=== PATIENT | male | born 1970 | race Caucasian/White ===

== ENCOUNTER 2019-05-20 14:29 | Inpatient (IN) | payer OTHER ==
[~2019-05-20] VITALS: Ht 185.4 cm; Wt 100.7 kg
[2019-05-20 14:35] VITALS: BP 128/79
--- NOTE | 2019-05-20 14:48 | NUR ---
Patient ambulated to bed 6. RN evaluating patient at bedside.
--- NOTE | 2019-05-20 14:48 | NUR ---
Pt placed in a patient gown. All clothing removed and placed in belongings bag. Clothing taken away from patient. Security called to collect items. Pt placed in bed, in position of comfort. Pt made aware belongings would be taken with security. Pt verbalized understanding.
[2019-05-20] MEDS ORDERED: ICOS1SGL PO (14:57)
[2019-05-20] MEDS ORDERED: OMEP20EC11 PO (14:57)
[2019-05-20] MEDS ORDERED: ESCI10TA PO (14:57)
[2019-05-20] MEDS ORDERED: ENAL5TAB48 PO (14:57)
[2019-05-20] MEDS ORDERED: CARV3.12 PO (14:57)
--- NOTE | 2019-05-20 14:58 | NUR ---
Security called to collect patient's belongings. Pt noted with large knife in back pack. All belongings given to director security risk management Fredis.
--- NOTE | 2019-05-20 15:11 | NUR ---
PT BIB SELF. C/O SUICIDAL IDEATION X3 DAYS. ADMITS TO USING METHAMPHETAMINE REGULARLY, LAST USED 2 DAYS AGO. PERRLA. CLAIMS TO NOT HAVE HAD MEDICATIONS X1 WEEK. STATES THAT HE TAKES SEROQUEL,REMERON, WELLBUTRIN, AND ATIVAN. STATES THAT 2 YEARS AGO HE ATTEMPTED TO KILL HIMSELF BY MEANS OF HANGING AND THAT HE HAS HAD THOUGHTS OF KILLING HIMSELF WITHIN THE LAST MONTH. AO X4 AT THIS TIME. VSS. SIDE RAILS UP. 1 TO 1 SITTER AT BEDSIDE. ER TO SEE PT.
--- NOTE | 2019-05-20 15:27 | NUR ---
Dr. Watson is evaluating the patient at bedside.
[2019-05-20] MEDS ORDERED: LORazepam 1 MG TAB PO ONE (15:45)
[2019-05-20] MEDS ORDERED: QUEtiapine FUMARATE 100 MG TAB PO SCH (15:45)
[2019-05-20] MEDS ORDERED: buPROPion 100 MG TAB PO SCH (15:45)
--- NOTE | 2019-05-20 16:20 | NUR ---
COLLECTED URINE FROM PT.
--- NOTE | 2019-05-20 16:24 | NUR ---
LAB AT BEDSIDE
[2019-05-20 17:01] LABS: BASOPHILS % (AUTO) 0.6 % (0.0-2.0); EOSINOPHILS # (AUTO) 0.1 K/uL (0-0.4); EOSINOPHILS % (AUTO) 1.9 % (0.0-4.0); HEMATOCRIT 40.8 % (36-52); HEMOGLOBIN 13.6 g/dL (12.0-18.0); LYMPHOCYTES # (AUTO) 1.2 K/uL (2.0-11.5); LYMPHOCYTES % (AUTO) 22.1 % (20.5-51.1); MEAN CORPUSCULAR HEMOGLOBIN 31 pg (27-31); MEAN CORPUSCULAR HGB CONC 33 g/dL (33-37); MEAN CORPUSCULAR VOLUME 93.2 fL (80-94); MONOCYTES # (AUTO) 0.4 K/uL (0.8-1.0); NEUTROPHILS # (AUTO) 3.8 K/uL (1.8-7.7); NEUTROPHILS % (AUTO) 68.4 % (42.2-75.2); PLATELET COUNT (AUTO) 194 K/uL (140-450); RED BLOOD CELL COUNT(AUTO) 4.37 MIL/uL (4.20-6.10); RED CELL DISTRIBUTION WIDTH 13.3 % (11.6-13.7); WHITE BLOOD COUNT (AUTO) 5.6 K/uL (4.8-10.8)
[2019-05-20 17:22] LABS: APPEARANCE,URINE CLEAR (CLEAR); BILIRUBIN,URINE 1+ (NEGATIVE); BLOOD, URINE NEGATIVE (NEGATIVE); COLOR,URINE YELLOW (YELLOW); LEUKOCYTE ESTERASE ,URINE NEGATIVE (NEGATIVE); NITRITE, URINE NEGATIVE (NEGATIVE); UGLUCOSE NEGATIVE (NEGATIVE)
[2019-05-20 17:28] LABS: ALBUMIN 3.4 g/dL (3.4-5.0); ASPARTATE AMINOTRANSFERASE 14 U/L (15-37); CARBON DIOXIDE 29.2 mmol/L (21-32); CHLORIDE 107 mmol/L (98-107); CREATININE 0.9 mg/dL (0.7-1.3); GFR ARICAN-AMERICAN 115 mL/min (>90); GLUCOSE 163 mg/dL (74-106); POTASSIUM 4.2 mmol/L (3.5-5.1); SODIUM SERUM 143 mmol/L (136-145); TOTAL BILIRUBIN 0.3 mg/dL (0.0-1.0); UREA NITROGEN, BLOOD 16 mg/dL (7-18)
[2019-05-20 17:29] LABS: SALICYLATE < 2.8 mg/dL (2.8-20.0)
[2019-05-20 17:30] LABS: ACETAMINOPHEN < 0.5 ug/ml (10-30)
[2019-05-20 17:33] LABS: BARBITURATE, URINE NEG. ng/ml (NEG <=200); BENZODIAZEPINE, URINE NEG. ng/mL (NEG <=200); CANNABINOID, URINE NEG. ng/mL (NEG <=50); COCAINE, URINE POS. ng/mL (NEG <=300); OPIATE, URINE NEG. ng/mL (NEG <=2000); PHENCYCLIDINE SCREEN,URINE NEG. ng/mL (NEG <=25)
--- NOTE | 2019-05-20 18:05 | NUR ---
Telepsychiatry consultation ordered as requested by Dr. Watson.
--- NOTE | 2019-05-20 19:12 | NUR ---
Dr. Aguiar psychiatrist called states pt is continuing to have SI with a plan and recommendation is to place pt on 5150 hold and be admitted to psychiatric hospital. Dr. Ybarra made aware. Addendum: 05/20/19 at 1914 by [facility] Dr. Watson made aware.
--- NOTE | 2019-05-20 20:55 | NUR ---
PT ASLEEP ON BED. NO BEHAVIOR ISSUES NOTED. WILL CONTINUE TO MONITOR 1:1 WITH ED STAFF.
--- NOTE | 2019-05-20 21:42 | NUR ---
Spoke with Nathan regarding patient. Awaiting intake paperwork to help facilitate placement
--- NOTE | 2019-05-20 22:37 | NUR ---
Received intake paperwork from Nathan and faxed to the following facilities for placement. [facility]/ [facility]/ [facility]/ [facility]
--- NOTE | 2019-05-20 22:58 | NUR ---
PATIENT IS SLEEPING IN BED. 1:1 SITTER AT BEDSIDE. WILL CONTINUE TO MONITOR.
--- NOTE | 2019-05-21 00:26 | NUR ---
PT CONTINUES TO ENDORSE SUICIDAL IDEATIONS. WHEN ASKED ABOUT ANY PLAN PT STATES, "I WANT TO HANG MYSELF." WILL CONTINUE TO MONITOR 1:1 WITH ED STAFF. PT VSS.
--- NOTE | 2019-05-21 04:04 | NUR ---
PT ASLEEP ON BED. NO BEHAVIOR ISSUES NOTED. WILL CONTINUE TO MONITOR 1:1 WITH ED STAFF.
--- NOTE | 2019-05-21 06:30 | NUR ---
PT CONTINUES TO HAVE SI. WHEN ASKED ABOUT THOUGHTS OF HARMING SELF PT STATES, "YES, I'M STILL HAVING THOSE THOUGHTS." MONITORING PT 1:1 WITH ED STAFF. PT VSS.
--- NOTE | 2019-05-21 07:30 | NUR ---
PT IS AWAKE ALERT, CLAM AND COOPERATIVE, REFUSED TO TALK ABOUT HIS FEELINGS AT THIS TIME, FLAT EFFECTS, VSS, DENIES PAIN, BREAKFAST OFFERED.
--- NOTE | 2019-05-21 07:39 | NUR ---
[facility] to continue actively working on finding placement for this pt. Will ccontact with any updates. No openings overnight per noc shift report.
--- NOTE | 2019-05-21 07:48 | NUR ---
PT STATED," I STILL WANT TO KILL MYSELF WITH A ROPE." ADMITTED HEARING VOICES TO TELL HIM TO KILL HIMSELF, PATIENT IS HOMELESS, LIVING ON STREET.
--- NOTE | 2019-05-21 09:20 | NUR ---
Pt calm, GCS 15, had her breakfast 100%, continue to monitor closely
--- NOTE | 2019-05-21 10:05 | NUR ---
Dr. Lauren is evaluating the patient at bedside.
--- NOTE | 2019-05-21 10:16 | NUR ---
Pt stable, VSS, GCS 15, will continue to monitor closely.
--- NOTE | 2019-05-21 10:53 | NUR ---
Followup with contracted facilities: [facility]: s/w Paula, states no beds right now but may have openings later today, cannot verify exactly when. [facility]: s/w Devan, no beds, states extensive waitlist, pt on the list. [facility]: No answer, packet refaxed.
--- NOTE | 2019-05-21 11:28 | NUR ---
pt stable, asleep, able to use urinal when he needs. GCS 15, no s/s of any distress, will continue to monitor closely.
--- NOTE | 2019-05-21 11:53 | NUR ---
pt eating lunch, no s/s of any distress.
--- NOTE | 2019-05-21 14:25 | NUR ---
pt asleep, no s/s of any acute distress, will continue to monitor closely.
[2019-05-21] MEDS ORDERED: ACETAMINOPHEN 325 MG TAB PO PRN (15:15)
[2019-05-21] MEDS ORDERED: NACL 0.9% 1,000 ML IV SCH (15:30)
[2019-05-21] MEDS ORDERED: LORazepam 2 MG/ML VIAL IM/IVP PRN (15:30)
[2019-05-21] MEDS ORDERED: ONDANSETRON 4 MG/2 ML VIAL IM/IVP PRN (15:30)
--- NOTE | 2019-05-21 15:45 | NUR ---
RECEIVED REPORT FROM [facility], ER NURSE. PATIENT IS HERE DUE TO SUICIDAL IDEATION, 0766. PATIENT IS ALERT AND ORIENTED X4. WILL CONTINUE TO MONITOR CLOSELY WITH 1:1 SITTER.
[2019-05-21 15:51] LABS: MAGNESIUM 2.1 mg/dL (1.8-2.4); PHOSPHORUS 2.8 mg/dL (2.5-4.9)
--- NOTE | 2019-05-21 15:59 | NUR ---
Patient will be admitted to care of DR. STANLEY. Admited to MED/SURGE. Will go to room 109B Belongings list completed. Report to CLAUDE CERVANTES
[2019-05-21] MEDS ORDERED: LORazepam 1 MG TAB PO PRN (17:05)
--- NOTE | 2019-05-21 19:00 | NUR ---
PATIENT IS ALERT AND ORIENTED X4. WILL CONTINUE TO MONITOR CLOSELY WITH 1:1 SITTER. NO S/S OF DISTRESS NOTED. WILL ENDORSE PATIENT TO NIGHT NURSE FOR CONTINUITY OF CARE.
--- NOTE | 2019-05-21 19:01 | NUR ---
RECD. RESTING IN BED SLEEPING COMFORTABLY. RESPIRATION EVEN AND UNLABORED. NO APPEARANCE OF PAIN NOTED. SAFETY MEASURES ENFORCED. ON 1:1 SITTER. WILL CONTINUE TO MONITOR PATIENT FOR ANY SUICIDAL BEHAVIOR AND ENSURE SAFETY THROUGHOUT THE SHIFT.
--- NOTE | 2019-05-21 20:00 | NUR ---
AWAKE IN BED, SEEMS STILL DROWSY. A/OX4. STATED HE HAS STILL SUICIDAL THOUGHTS AND OCCASIONALLY HEARING VOICES TELLING TO HURT HIMSELF. PLAN OF CARE FOR THE SHIFT DISCUSSED. JUST NODS HEAD AND WENT BACK TO SLEEP.
[2019-05-21 20:35] VITALS: BP 136/81
--- NOTE | 2019-05-21 20:40 | NUR ---
PATIENT STINKS, SUGGESTED TO HAVE SHOWER TONIGHT OR TOMORROW, STATED "OK".
[2019-05-21] MEDS: MIRTAZAPINE 15 MG TAB PO SCH (20:48)
[2019-05-21] MEDS: QUEtiapine FUMARATE 100 MG TAB PO SCH (20:49)
--- NOTE | 2019-05-21 20:50 | NUR ---
DUE PO MEDICATIONS F0R THE NIGHT GIVEN. COOPERATIVE. AMBULATED TO BR TO VOID AND WENT BACK TO BED TO SLEEP.
--- NOTE | 2019-05-21 21:49 | NUR ---
[facility] CALL[facility], NO BED YET BUT WILL CALL [facility] TOMORROW IF THERE IS AVAILABLE BED FOR PATIENT.
--- NOTE | 2019-05-21 22:15 | NUR ---
Patient's Plan of Care was discussed and reviewed with HEALTH AND WELLNESS INSTRUCTOR: KAYLA ENNIS
--- NOTE | 2019-05-21 23:30 | NUR ---
SLEEPING COMFORTABLY, NO DISTRESS NOTED.
--- NOTE | 2019-05-21 23:45 | NUR ---
WOKE UP, AMBULATED TO BR TO VOID. BACK TO BED AFTER VOIDING AND WENT BACK TO SLEEP.
[2019-05-22] VITALS: BP 128/76
--- NOTE | 2019-05-22 02:00 | NUR ---
STILL SLEEPING COMFORTABLY, NO DISTRESS NOTED.
--- NOTE | 2019-05-22 05:19 | NUR ---
Follow up calls were made through out shift to contracted [facility] facilities regarding bed placement, still no update on beds. [facility], spoke with [facility] Tri[facility]ae[facility], spoke with Devan. [facility], spoke with Aleks. [facility], packet is still on file. Unit will be notified if and when a bed becomes available, will endorse to oncoming AM shift.
--- NOTE | 2019-05-22 06:33 | NUR ---
CONDITION REMAIN STABLE. ABLE TO SLEEP WELL. SAFETY MAINTAINED DURING SHIFT. NEW SITTER MONITORING PATIENT. WILL ENDORSE TO AM NURSE FOR CONTINUITY OF CARE.
[2019-05-22 06:54] LABS: CHOL/HDL RATIO 4.3 (1-4.5)
--- NOTE | 2019-05-22 07:00 | NUR ---
RECEIVED REPORT FROM NIGHT RN. PATIENT IS FULL CODE, NKA, ON A 5150 HOLD. PT HAS SITTER AT DOOR-SIDE. AAOX4, ROOM AIR. PENDING CONSULT WITH DR BENTLEY TODAY. WILL CONTINUE WITH CURRENT PLAN OF CARE FOR THE DAY.
--- NOTE | 2019-05-22 07:08 | NUR ---
ENDORSED TO CLAUDE SIMMONS FOR CONTINUITY OF CARE.
--- NOTE | 2019-05-22 07:09 | NUR ---
Received report from building services supervisor. [facility] will continue to look for placement.
--- NOTE | 2019-05-22 08:27 | NUR ---
PATIENT HAS BEEN SCREENED AND CATEGORIZED LOW NUTRITION RISK. PATIENT WILL BE SEEN WITHIN 7 DAYS OF ADMISSION. 05/28/[address]
[2019-05-22] MEDS: QUEtiapine FUMARATE 100 MG TAB PO SCH ×2 (09:00→20:29)
--- NOTE | 2019-05-22 10:00 | NUR ---
ADMINISTERED MORNING SEROQUEL. PATIENT TOLERATED WELL. VITAL SIGNS WNL PRIOR
--- NOTE | 2019-05-22 11:16 | NUR ---
PATIENT SLEEPING IN BED. VISIBLE CHEST RISE AND FALL. SITTER AT DOOR-SIDE.
--- NOTE | 2019-05-22 11:43 | NUR ---
No beds at the following facilities: [facility]
--- NOTE | 2019-05-22 13:15 | NUR ---
PATIENT IS SLEEPING IN BED. VISIBLE CHEST RISE AND FALL. SITTER AT DOOR-SIDE
--- NOTE | 2019-05-22 15:39 | NUR ---
PATIENT IS SLEEPING IN BED, EASILY AROUSABLE.
[2019-05-22 16:00] VITALS: BP 123/80
--- NOTE | 2019-05-22 18:35 | NUR ---
PATIENT RESTING QUIETLY IN BED. PER DR BENTLEY, NO CHANGE IN RX ORDERS. WILL ENDORSE TO NEXT SHIFT FOR CONTINUITY OF CARE
--- NOTE | 2019-05-22 19:13 | NUR ---
RECEIVED BEDSIDE REPORT FROM DAY SHIFT NURSE. PATIENT IS SLEEPING RESPIRATION EVEN UNLABORED ON ROOM AIR. NO DISTRESS NOTED. SITTER AT BEDSIDE. ALL SAFETY MEASURES IN PLACE. PLAN OF CARE UP TO DATE. WILL CONTINUE TO MONITOR.
--- NOTE | 2019-05-22 20:10 | NUR ---
INITIAL ASSESSMENT DONE. VITALS WERE TAKEN. PATIENT IN STABLE CONDITION. SITTER AT BEDSIDE WILL CONTINUE TO MONITOR.
[2019-05-22] MEDS: MIRTAZAPINE 15 MG TAB PO SCH (20:29)
--- NOTE | 2019-05-22 20:32 | NUR ---
ALL SCHEDULED MEDS WERE GIVEN PER ORDER. NO ASE NOTED. WILL CONTINUE TO MONITOR.
--- NOTE | 2019-05-22 22:25 | NUR ---
CHECKED ON PATIENT. PATIENT SLEEPING RESPIRATION EVEN UNLABORED ON ROOM AIR. NO DISTRESS NOTED. WILL CONTINUE TO MONITOR.
[2019-05-23] VITALS: BP 144/82
--- NOTE | 2019-05-23 00:05 | NUR ---
VITALS WERE TAKEN. PATIENT IN STABLE CONDITION. NO DISTRESS NOTED. SITTER AT BEDSIDE. WILL CONTINUE TO MONITOR
--- NOTE | 2019-05-23 02:02 | NUR ---
CHECKED PATIENT. PATIENT SLEEPING RESPIRATION EVEN UNLABORED ON ROOM AIR. NO DISTRESS NOTED. SITTER AT BEDSIDE WILL CONTINUE TO MONITOR.
--- NOTE | 2019-05-23 03:20 | NUR ---
[facility] CALL[facility] REGARDING PATIENT BEING REFERRED TO THEM, THEY CANT TAKE PATIENT UNLESS HE IS MEDICALLY CLEARED FOR DISCHARGE.
--- NOTE | 2019-05-23 04:36 | NUR ---
CHECKED ON PATIENT, PATIENT SLEEPING RESPIRATION EVEN UNLABORED ON ROOM AIR. NO DISTRESS NOTED. SITTER AT BEDSIDE. WILL CONTINUE TO MONITOR.
[2019-05-23 06:28] LABS: ANION GAP 9.9 (8-16); CARBON DIOXIDE 29.8 mmol/L (21-32); CREATININE 0.8 mg/dL (0.7-1.3); POTASSIUM 4.7 mmol/L (3.5-5.1)
--- NOTE | 2019-05-23 06:31 | NUR ---
Received report from PM shift. Will follow up with surrounding Psych facilities to locate appropriate placement.
--- NOTE | 2019-05-23 07:14 | NUR ---
ENDORSED PATIENT TO DAY SHIFT NURSE. PATIENT IN STABLE CONDITION.
--- NOTE | 2019-05-23 07:15 | NUR ---
RECEIVED PT FROM NIGHT NURSE. PT ASLEEP IN BED AROUSABLE TO SPEECH. AAOX4. DENIES PAIN AT THIS TIME. REGULAR DIET. SKIN INTACT. NO IV SITE IN PLACE. RESPIRATIONS EVEN AND UNLABORED ON ROOM AIR. SAFETY MEASURES IN PLACE. BED IN LOW POSITION. SITTER 1:1. WILL CONTINUE TO MONITOR.
[2019-05-23 07:16] LABS: BASOPHILS % (AUTO) 0.9 % (0.0-2.0); EOSINOPHILS # (AUTO) 0.2 K/uL (0-0.4); HEMATOCRIT 42.3 % (36-52); HEMOGLOBIN 14.4 g/dL (12.0-18.0); LYMPHOCYTES # (AUTO) 1.2 K/uL (2.0-11.5); LYMPHOCYTES % (AUTO) 24.4 % (20.5-51.1); MEAN CORPUSCULAR HEMOGLOBIN 31 pg (27-31); MEAN CORPUSCULAR HGB CONC 34 g/dL (33-37); MEAN CORPUSCULAR VOLUME 92.3 fL (80-94); MONOCYTES # (AUTO) 0.3 K/uL (0.8-1.0); MONOCYTES % (AUTO) 6.6 % (1.7-9.3); NEUTROPHILS # (AUTO) 3.2 K/uL (1.8-7.7); NEUTROPHILS % (AUTO) 64.1 % (42.2-75.2); PLATELET COUNT (AUTO) 158 K/uL (140-450); RED BLOOD CELL COUNT(AUTO) 4.58 MIL/uL (4.20-6.10); RED CELL DISTRIBUTION WIDTH 13.3 % (11.6-13.7)
[2019-05-23 08:00] VITALS: BP 126/60
[2019-05-23] MEDS: QUEtiapine FUMARATE 100 MG TAB PO SCH ×2 (09:05→23:06)
--- NOTE | 2019-05-23 09:06 | NUR ---
MEDICATION ADMINISTERED PER ORDER. PT TOLERATED WELL. DENIES PAIN. NO DISTRESS NOTED. WILL CONTINUE TO MONITOR.
--- NOTE | 2019-05-23 10:43 | NUR ---
[facility]- spoke w/ sil [facility]- spoke w/ amos [facility]-spoke w/ haley
--- NOTE | 2019-05-23 11:34 | NUR ---
PT IN BED ASLEEP. NO DISTRESS NOTED. SAFETY MEASURES IN PLACE. 1:1 SITTER. WILL CONTINUE TO MONITOR
--- NOTE | 2019-05-23 14:09 | NUR ---
PT IN BED SLEEPING. NO DISTRESS NOTED. SAFETY MEASURES IN PLACE. WILL CONTINUE TO MONITOR.
[2019-05-23 16:00] VITALS: BP 111/71
--- NOTE | 2019-05-23 16:34 | NUR ---
PT ASLEEP IN BED. VITAL SIGNS TAKEN AT THIS TIME. PT DENIES PAIN. NO DISTRESS NOTED. SAFETY MEASURES IN PLACE. WILL CONTINUE TO MONITOR.
--- NOTE | 2019-05-23 19:05 | NUR ---
REPORT GIVEN TO NIGHT NURSE FOR CONTINUITY OF CARE.
--- NOTE | 2019-05-23 19:32 | NUR ---
RECEIVED REPORT FROM JUSTINA ARCE DAYSHIFT NURSE AT BEDSIDE FOR CONTINUITY OF CARE, PT IN STABLE CONDITION.
--- NOTE | 2019-05-23 20:00 | NUR ---
PT IN BED RESTING WITH EYES CLOSED BUT AROUSABLE TO NAME. PT DENIES ANY PAIN OR DISTRESS NOTED. V/S FOLLOWS: T 98.3 P 80 R 18 B/P 128/80 02 97%. 1:1 SITTER AT BEDSIDE.
--- NOTE | 2019-05-23 21:00 | NUR ---
PT GIVEN ORDERED REMERON AND SEROQUEL. MEDICATION EDUCATION PROVIDED AT BEDSIDE, PT ACKNOWLEDGED UNDERSTANDING.
--- NOTE | 2019-05-23 22:30 | NUR ---
PT IN BED SLEEPING NO S/S OF PAIN OT DISTRESS NOTED. 1:1 SITTER AT BEDSIDE.
[2019-05-23] MEDS: MIRTAZAPINE 15 MG TAB PO SCH (23:06)
[2019-05-24] VITALS: BP 121/78
--- NOTE | 2019-05-24 | NUR ---
PT IN BED 1:1 SITTER AT BEDSIDE. PT REMAINS IN BED NO S/S OF PAIN OR DISTRESS NOTED. V/S FOLLOWS : T 97.9 P 73 R 18 B/P 121/78 02 98% ON ROOM AIR.
--- NOTE | 2019-05-24 00:03 | NUR ---
[facility] is still aware of patient, 5150 hold has 11/20/18 @ 20:00 hours, patient will need a re evaluation.
--- NOTE | 2019-05-24 02:30 | NUR ---
PT IN BED ASLEEP , NO S/S OF PAIN OR DISTRESS NOTED, 1:1 SITTER AT BEDSIDE.
--- NOTE | 2019-05-24 05:39 | NUR ---
PT IN BED SLEEPING, NO S/S OF PAIN OR DISTRESS NOTED, 1:1 SITTER AT BEDSIDE.
--- NOTE | 2019-05-24 07:05 | NUR ---
RECEIVED REPORT FROM NIGHT NURSE. PT IN BED WITH EYES CLOSED, AROUSABLE TO SPEECH. AAOX4. NO IV IN PLACE. RESPIRATIONS EVEN AND UNLABORED ON ROOM AIR, CLEAR BREATH SOUNDS. 1:1 SITTER. SKIN INTACT. SAFETY MEASURES IN PLACE. BED IN LOW POSITION. WILL CONTINUE TO MONITOR.
[2019-05-24 08:00] VITALS: BP 123/69
--- NOTE | 2019-05-24 08:47 | NUR ---
Received report from PM shift. W ill continue to monitor and locate placement
[2019-05-24] MEDS: QUEtiapine FUMARATE 100 MG TAB PO SCH ×2 (09:42→20:04)
[2019-05-24] MEDS: LACTOBACILLUS RHAMNOSUS GG 1 EACH CAP PO SCH (09:42)
--- NOTE | 2019-05-24 09:44 | NUR ---
MEDICATIONS ADMINISTERED PER ORDER. PT TOLERATED WELL. NO DISTRESS NOTED. SAFETY MEASURES IN PLACE. WILL CONTINUE TO MONITOR.
[2019-05-24] MEDS: AMPICILLIN/SULBACTAM 3 GM in NACL 0.9% 100 ML IV SCH ×2 (12:20→18:12)
[2019-05-24 16:00] VITALS: BP 117/69
--- NOTE | 2019-05-24 17:16 | NUR ---
No beds at the following facilities: [facility]
--- NOTE | 2019-05-24 17:20 | NUR ---
Mike from tele unit confirmed he would re fax the new 8333 hold
--- NOTE | 2019-05-24 17:30 | NUR ---
PTS 1840 HOLD FAXED TO [facility]. CONFIRMATION OF DELIVERY RECEIVED
--- NOTE | 2019-05-24 18:25 | NUR ---
MEDICATIONS ADMINISTERED PER ORDER. PT TOLERATED WELL. PT DENIES PAIN. WILL CONTINUE TO MONITOR.
--- NOTE | 2019-05-24 19:08 | NUR ---
REPORT GIVEN TO NIGHT NURSE FOR CONTINUITY OF CARE.
--- NOTE | 2019-05-24 19:10 | NUR ---
RECEIVED REPORT FORM JUSTINA ARCE DAYSHIFT NURSE AT BEDSIDE FOR CONTINUITY OF CARE PT IN STABLE CONDITION.
--- NOTE | 2019-05-24 20:00 | NUR ---
PT IN LOW BED WITH SIDE RAILS UP X2 SLEEPING NO S/S OF PAIN OR DISTRESS NOTED. IV SITE ON LEFT HAND 22G INTACT AND RUNNING N/S AT 10MLS/HR. V/S FOLLOWS : T 97.5 P 68 R 18 B/P 132/78 02 97% ON ROOM AIR. 1:1 SITTER AT BEDSIDE.
[2019-05-24] MEDS: MIRTAZAPINE 15 MG TAB PO SCH (20:04)
[2019-05-24] MEDS: HYDROcodone/APAP 5/325 MG 1 TAB TAB PO PRN (20:10)
--- NOTE | 2019-05-24 20:23 | NUR ---
New 5150 hold received. Will continue to look for placement.
--- NOTE | 2019-05-24 20:30 | NUR ---
PT GIVEN 1 TAB NORCO PO/PRN FOR MODERATE PAIN IN HIS TOOTH.
--- NOTE | 2019-05-24 21:00 | NUR ---
PT IN BED SLEEPING BUT AROUSABLE TO NAME, PT GIVEN ORDERED REMERON AND SEROQUEL MEDICATION EDUCATION PROVIDED . PT VERBALIZED UNDERSTANDING. NO S/S OF PAIN OR DISTRESS NOTED. 1:1 SITTER AT BEDSIDE.
[2019-05-25] VITALS: BP 132/78
--- NOTE | 2019-05-25 | NUR ---
PT IN BED NO S/S OF PAIN OR DISTRESS NOTED. V/S FOLLOWS : T 98.0 P 80 R 18 B/P 114/85 02 995 ON ROOM AIR. PT GIVEN ORDERED UNASYM FOR ABT FOR TOOTH ACHE. IV SITE INTACT AND ASYMPTOMATIC.
[2019-05-25] MEDS: AMPICILLIN/SULBACTAM 3 GM in NACL 0.9% 100 ML IV SCH ×3 (00:52→12:04)
--- NOTE | 2019-05-25 02:00 | NUR ---
PT IN BED ASLEEP NO S/S OF PAIN OR DISTRESS NOTED. IV SITE ON R HAND 22G INTACT AND RUNNING N/S AT 10MLS/HR. 1:1 SITTER AT BEDSIDE.
--- NOTE | 2019-05-25 05:48 | NUR ---
PT IN BED IV SITE INTACT PT GIVEN IV ABT UNASYN FOR TOOTH ACHE, NO S/S OF PAIN OR DISTRESS NOTED. 1:1 SITTER AT BEDSIDE.
[2019-05-25 06:00] VITALS: BP 137/90
--- NOTE | 2019-05-25 07:30 | NUR ---
RECEIVED PATIENT FROM WELL LOGGER, SHARRON. PATIENT SLEEPING AT THIS TIME. NO SIGNS OF DISTRESS. RESPIRATIONS EVEN AND UNLABORED, ROOM AIR. IV R HAND 22G RUNNING 0.9% NS AT 10 ML/HR TKO. IV IS PATENT, DRY AND INTACT. ON SUICIDE PRECAUTIONS. BED IN LOW POSITION. WILL CONTINUE TO MONITOR.
[2019-05-25 08:00] VITALS: BP 137/86
--- NOTE | 2019-05-25 08:23 | NUR ---
Received report from prior shift. Will continue to help with finding placement for patient
[2019-05-25] MEDS ORDERED: LACTOBACILLUS RHAMNOSUS GG 1 EACH CAP PO SCH (09:00)
[2019-05-25] MEDS: LACTOBACILLUS RHAMNOSUS GG 1 EACH CAP PO SCH (09:54)
[2019-05-25] MEDS: QUEtiapine FUMARATE 100 MG TAB PO SCH ×2 (09:54→20:09)
--- NOTE | 2019-05-25 09:56 | NUR ---
ADMINISTERED MORNING MEDICATIONS. EDUCATED PATIENT ON INDICATIONS AND SIDE EFFECTS. VERBALIZED UNDERSTANDING. PATIENT TOLERATED WELL.
[2019-05-25] MEDS: HYDROcodone/APAP 5/325 MG 1 TAB TAB PO PRN (10:02)
--- NOTE | 2019-05-25 10:03 | NUR ---
C/O PAIN 6/10, TOOTHACHE. PAIN MEDICATION, NORCO IS GIVEN. EDUCATED PATIENT ON INDICATION AND SIDE EFFECTS. PATIENT TOLERATED WELL. WILL CONTINUE TO MONITOR PAIN.
--- NOTE | 2019-05-25 11:12 | NUR ---
PATIENT IS SLEEPING AT THIS TIME. NO SIGNS OF DISTRESS NOTED. WILL CONTINUE TO MONITOR.
--- NOTE | 2019-05-25 12:04 | NUR ---
HUNG UNASYN AT 200 ML/HR VIA IVPB. EDUCATED PT. ON PURPOSE AND SIDE EFFECTS. PT. VERBALIZED UNDERSTANDING. BED IN LOW POSITION. PT. IS CURRENTLY EATING LUNCH IN BED.
--- NOTE | 2019-05-25 12:30 | NUR ---
PATIENT WENT TO HAVE A SHOWER WITH THE 1:1 SITTER AT THE DOOR. DISCONNECTED IV. PT. AMBULATED TO SHOWER ROOM.
--- NOTE | 2019-05-25 13:00 | NUR ---
BACK FROM SHOWER. 1:1 SITTER AT THE DOOR. RECONNECTED IV. PT. IS LAYING IN BED, RESTING.
--- NOTE | 2019-05-25 15:28 | NUR ---
PATIENT IS SLEEPING AT THIS TIME. 1:1 SITTER AT THE DOOR. NO SIGNS OF DISTRESS. WILL CONTINUE TO MONITOR.
[2019-05-25 16:00] VITALS: BP 137/90
[2019-05-25] MEDS: DOCUSATE SODIUM 100 MG GELCAP PO PRN (17:36)
--- NOTE | 2019-05-25 18:55 | NUR ---
PATIENT IS SLEEPING AT THIS TIME. NO SIGNS OF DISTRESS NOTED. RESPIRATIONS EVEN AND UNLABORED. ON ROOM AIR. 1:1 SITTER AT THE DOOR. BED IN LOW POSITION. CALL LIGHT WITHIN REACH. WILL ENDORSE PATIENT TO THE VOCATIONAL NURSE RN.
--- NOTE | 2019-05-25 19:05 | NUR ---
REPORT RECEIVED FROM AM NURSE AT BEDSIDE. PT IN STABLE CONDITION. AAOX4. INTRODUCED SELF TO PT. NO COMPLAINTS OF PAIN. NO SOB. AFEBRILE. IV SITE L HAND 22G RUNNING NS@10ML/HR PATENT AND INTACT. SKIN WARM, DRY, AND INTACT WITH NO OPEN WOUNDS. BED LOCKED IN LOW POSITION. CALL HASSAN WITHIN REACH. SAFETY PRECAUTION IN PLACE. ALL NEEDS MET AT THIS TIME.
[2019-05-25] MEDS: MIRTAZAPINE 15 MG TAB PO SCH (20:09)
--- NOTE | 2019-05-25 20:09 | NUR ---
AUGMENTIN, SEROQUEL, AND MIRTAZAPINE GIVEN PO. PT TOLERATED WELL.
[2019-05-25] MEDS ORDERED: AMOXIL/CLAVULANATE 875/125 MG 1 TAB PO SCH (21:00)
--- NOTE | 2019-05-25 21:50 | NUR ---
PT SLEEPING COMFORTABLY BUT AROUSABLE. NO S/S OF DISTRESS NOTED. WILL CONTINUE TO MONITOR.
--- NOTE | 2019-05-25 23:30 | NUR ---
At this time there are no vacancy at the following facilities [facility] charge account authorizer nurse made aware , will continue to make calls for placement.
--- NOTE | 2019-05-25 23:45 | NUR ---
GIO FROM [facility] CALLED AND SAID NO BED AVAILABLE FOR PT AT THIS TIME.
[2019-05-26] VITALS: BP 118/62
--- NOTE | 2019-05-26 00:20 | NUR ---
PT SLEEPING COMFORTABLY BUT AROUSABLE. NO S/S OF DISTRESS NOTED. NO COMPLAINTS OF PAIN. NO SOB. AFEBRILE. WILL CONTINUE TO MONITOR.
--- NOTE | 2019-05-26 02:45 | NUR ---
PT SLEEPING COMFORTABLY BUT AROUSABLE. NO S/S OF DISTRESS NOTED. RESPIRATIONS EVEN, UNLABORED, AND WNL. WILL CONTINUE TO MONITOR.
--- NOTE | 2019-05-26 04:40 | NUR ---
PT SLEEPING COMFORTABLY BUT AROUSABLE. NO S/S OF DISTRESS NOTED. WILL CONTINUE TO MONITOR.
--- NOTE | 2019-05-26 06:40 | NUR ---
PT SLEEPING COMFORTABLY BUT AROUSABLE. NO S/S OF DISTRESS NOTED. PT IN STABLE CONDITION.
[2019-05-26 07:05] LABS: BASOPHILS # (AUTO) 0.1 K/uL (0.00-0.22); BASOPHILS % (AUTO) 1.2 % (0.0-2.0); EOSINOPHILS # (AUTO) 0.2 K/uL (0-0.4); HEMATOCRIT 40.3 % (36-52); HEMOGLOBIN 13.6 g/dL (12.0-18.0); LYMPHOCYTES # (AUTO) 1.1 K/uL (2.0-11.5); LYMPHOCYTES % (AUTO) 24.1 % (20.5-51.1); MEAN CORPUSCULAR HEMOGLOBIN 31 pg (27-31); MEAN CORPUSCULAR HGB CONC 34 g/dL (33-37); MEAN CORPUSCULAR VOLUME 92.1 fL (80-94); MONOCYTES # (AUTO) 0.3 K/uL (0.8-1.0); MONOCYTES % (AUTO) 7.3 % (1.7-9.3); NEUTROPHILS % (AUTO) 63.4 % (42.2-75.2); PLATELET COUNT (AUTO) 146 K/uL (140-450); RED BLOOD CELL COUNT(AUTO) 4.37 MIL/uL (4.20-6.10); RED CELL DISTRIBUTION WIDTH 13.1 % (11.6-13.7); WHITE BLOOD COUNT (AUTO) 4.7 K/uL (4.8-10.8)
[2019-05-26 07:11] LABS: MAGNESIUM 1.7 mg/dL (1.8-2.4); PHOSPHORUS 2.9 mg/dL (2.5-4.9)
--- NOTE | 2019-05-26 07:16 | NUR ---
REPORT RECEIVED FROM NEWS COMMENTATOR NURSE, PATIENT IS RESTING IN BED NO SIGNS OF DISTRESS NOTED. WILL CONTINUE TO MONITOR. Addendum: 05/26/19 at 0731 by Vasile Thompson RN LEFT FOREARM IV 22 GAUGE PATENT AND INTACT. FULL CODE, NKA. AWAITING PLACEMENT D/T HOMELESS STATUS. REGULAR DIET.
[2019-05-26 08:00] VITALS: BP 149/97
--- NOTE | 2019-05-26 08:15 | NUR ---
PER AUNG FROM [facility] THERE ARE NO NEW UPDATES AT THIS TIME
[2019-05-26] MEDS ORDERED: MAGNESIUM OXIDE 400 MG TAB PO SCH (09:00)
[2019-05-26 09:04] LABS: ANION GAP 11.8 (8-16); CARBON DIOXIDE 26.5 mmol/L (21-32); CREATININE 0.8 mg/dL (0.7-1.3); POTASSIUM 4.3 mmol/L (3.5-5.1)
[2019-05-26] MEDS: AMOXIL/CLAVULANATE 875/125 MG 1 TAB PO SCH ×2 (09:14→20:36)
[2019-05-26] MEDS: QUEtiapine FUMARATE 100 MG TAB PO SCH ×2 (09:15→20:36)
[2019-05-26] MEDS: LACTOBACILLUS RHAMNOSUS GG 1 EACH CAP PO SCH (09:15)
--- NOTE | 2019-05-26 09:30 | NUR ---
MEDICATIONS ADMINISTERED PO, PATIENT TOLERATED WELL, NO SIGNS OF DISTRESS NOTED. WILL CONTINUE TO MONITOR.
--- NOTE | 2019-05-26 11:30 | NUR ---
PATIENT OBSERVED SLEEPING, NO SIGNS OF DISTRESS NOTED. PATIENT CONTINUES TO STATE FEELINGS OF HELPLESSNESS. EDUCATED ON THE IMPORTANCE OF COMING TO STAFF IF SAFETY IS CONCERNED. CALL LIGHT AND BED ALARM IN PLACE. WILL CONTINUE TO MONITOR.
--- NOTE | 2019-05-26 11:39 | NUR ---
DC PLANNIN48 YEAR OLD MALE PATIENT FROM HOME, WHO CAME IN DUE TO SUICIDAL IDEATION AND WAS PLACED ON 5150 HOLD. PAST MEDICAL HISTORY INCLUDE DEPRESSION, BIPOLAR AND SCHIZOPHRENIA. INITIAL DIAGNOSIS OF SUICIDAL IDEATION 2/2 MEDICATION NON COMPLIANCE. UDS POSITIVE FOR COCAINE AND METHAMPHETAMINE USE. PSYCH CONSULT WITH DR. BENTLEY RE: 5150 HOLD, SUICIDAL IDEATION. STILL PENDING IN PATIENT PSYCHE FACILITY TRANSFER.
--- NOTE | 2019-05-26 13:00 | NUR ---
PT SITTING UP IN BED EATING LUNCH. NO COMPLAINTS AT THIS TIME.
--- NOTE | 2019-05-26 14:00 | NUR ---
SPOKE TO [facility] AND WAS TOLD TO FAX HER NEW 7140 HOLD. INFORMED GEOTHERMAL INSTALLER TO FAX. WILL F/U
--- NOTE | 2019-05-26 14:51 | NUR ---
there are no new updates at this time at the following facilities: [facility] WILL CONT TO MONITOR NOTES AND F/U RE PLACEMENT
[2019-05-26 16:00] VITALS: BP 132/81
--- NOTE | 2019-05-26 16:30 | NUR ---
PATIENT IS OBSERVED SLEEPING IN BED, CHEST RISE AND FALL VISUALIZED. NO SIGNS OF DISTRESS NOTED. WILL CONTINUE TO MONITOR FOR SAFETY.
--- NOTE | 2019-05-26 18:20 | NUR ---
PER DR BENTLEY, ITS OK IF PATIENTS HOLD ENDS TODAY, PLAN IS FOR DC TOMORROW MORNING. WILL ENDORSE TO NIGHT NURSE FOR CONTINUITY OF CARE
--- NOTE | 2019-05-26 19:20 | NUR ---
PATIENT REPORT HANDED OVER TO ONCOMING INVESTIGATOR UTILITY BILL COMPLAINTS NURSE FOR CONTINUATION OF CARE. PATIENT IS RESTING IN BED. PREPARING FOR DISPO TOMORROW.
--- NOTE | 2019-05-26 19:21 | NUR ---
Received endorsement from AM shift RN; patient A/Ox4, able to make needs known, Nepali speaking ambulatory. Introduced self, orient patient to room and hospital environment. Patient on 5150 hold, 1:[address] No SOB or distress noted, on room air. IV site on left forearm, 22 gauge, saline locked. Dr. Lauren did not renew 5150 hold. Bed in the lowest position, call light within reach. Initial assessment done. Will continue to monitor.
[2019-05-26] MEDS: MIRTAZAPINE 15 MG TAB PO SCH (20:36)
[2019-05-26] MEDS: HYDROcodone/APAP 5/325 MG 1 TAB TAB PO PRN (20:41)
--- NOTE | 2019-05-26 21:10 | NUR ---
Due meds given, tolerated well.
--- NOTE | 2019-05-26 23:20 | NUR ---
Vitals taken; patient resting comfortably, visible chest rise and fall noted.
[2019-05-27] VITALS: BP 126/73
--- NOTE | 2019-05-27 01:00 | NUR ---
Rounds done; patient asleep, eyes closed, visible chest rise and fall noted.
--- NOTE | 2019-05-27 02:33 | NUR ---
[facility] called at this time; was informed that there are no beds available at this time, but will call back if there's an available bed.
--- NOTE | 2019-05-27 03:10 | NUR ---
Checks made; no SOB or distress noted. Patient resting comfortably, visible chest rise and fall noted.
--- NOTE | 2019-05-27 05:01 | NUR ---
Rounds done; no SOB or distress noted.
--- NOTE | 2019-05-27 06:00 | NUR ---
Vitals stable, due meds given. Will endorse to AM shift RN for continuity of care.
--- NOTE | 2019-05-27 06:02 | NUR ---
Charge nurse Milagros ARCE made aware there were no vacancy at any of the facilities , will endorsed to AM shift to continue to look for placement.
--- NOTE | 2019-05-27 07:10 | NUR ---
RECEIVED BED SIDE REPORT FROM GREEN [employer] MARKETING ANALYST NURSE. PATIENT IN STABLE CONDITION, NO DISTRESS NOTED. WILL CONTINUE TO FOLLOW UP.
[2019-05-27 08:00] VITALS: BP 136/72
[2019-05-27] MEDS: HYDROcodone/APAP 5/325 MG 1 TAB TAB PO PRN ×2 (09:03→15:47)
[2019-05-27] MEDS: LACTOBACILLUS RHAMNOSUS GG 1 EACH CAP PO SCH (09:03)
[2019-05-27] MEDS: QUEtiapine FUMARATE 100 MG TAB PO SCH ×2 (09:03→20:10)
[2019-05-27] MEDS: AMOXIL/CLAVULANATE 875/125 MG 1 TAB PO SCH ×2 (09:03→20:11)
--- NOTE | 2019-05-27 09:07 | NUR ---
PATIENT CALM AT THE BED SIDE, SCHEDULED MEDS GIVEN TO PATIENT AT THIS TIME.
[2019-05-27] MEDS: DOCUSATE SODIUM 100 MG GELCAP PO PRN (09:08)
[2019-05-27] MEDS ORDERED: BISACODYL 10 MG SUPP RC SCH (11:30)
[2019-05-27] MEDS ORDERED: DOCUSATE SODIUM 100 MG GELCAP PO SCH (11:30)
--- NOTE | 2019-05-27 11:30 | NUR ---
PATIENT LYING DOWN IN BED SLEEPING, AROUSABLE BY VOICE. NO DISTRESS NOTED. WILL CONTINUE TO MONITOR.
--- NOTE | 2019-05-27 14:24 | NUR ---
AT THE BEDSIDE WITH PATIENT, BISACODYL 10MG SUPP NOT GIVEN, REFUSED BY PATIENT DUE TO HAVING A BOWEL MOVEMENT. WILL CONTINUE TO MONITOR.
--- NOTE | 2019-05-27 15:49 | NUR ---
PATIENT AT THE BEDSIDE C/C TOOTH PAIN, WILL MEDICATED PER PROTOCOL AND CONTINUE TO MONITOR
[2019-05-27 16:00] VITALS: BP 133/83
--- NOTE | 2019-05-27 19:22 | NUR ---
GAVE REPORT TO COST ESTIMATING ENGINEER NURSE FOR CONTINUITY OF CARE. PATIENT IN STABLE CONDITION.
--- NOTE | 2019-05-27 19:30 | NUR ---
ASSUMED CARE OF PATIENT, AWAKE, NO COMPLAINS. CALL LIGHT WITHIN REACH.
[2019-05-27] MEDS: DOCUSATE SODIUM 100 MG GELCAP PO SCH (20:11)
[2019-05-27] MEDS: MIRTAZAPINE 15 MG TAB PO SCH (20:11)
--- NOTE | 2019-05-27 20:30 | NUR ---
SNACK PROVIDED. DUE MEDS GIVEN. PLAN OF CARE DISCUSSED WITH PATIENT, VERBALIZED UNDERSTANDING WELL. CALL LIGHT WITHIN REACH.
--- NOTE | 2019-05-27 21:56 | NUR ---
[facility]
[2019-05-28 00:49] VITALS: BP 120/64
--- NOTE | 2019-05-28 00:50 | NUR ---
ASLEEP, EASILY AROUSABLE. NO COMPLAINS. VITAL SIGNS STABLE. CALL LIGHT WITHIN REACH.
--- NOTE | 2019-05-28 04:49 | NUR ---
SLEEPING WELL. NO COMPLAINS. CALL LIGHT WITHIN REACH.
--- NOTE | 2019-05-28 07:26 | NUR ---
RECEIVED REPORT FROM BOAT OUTBOARD ENGINE MECHANIC NURSE, PATIENT IN STABLE CONDITION. WILL CONTINUE TO MONITOR.
--- NOTE | 2019-05-28 07:28 | NUR ---
ENDORSED CARE AT BEDSIDE WITH SOFIA RN, PATIENT IN STABLE CONDITION.
[2019-05-28 08:00] VITALS: BP 107/57
[2019-05-28] MEDS: HYDROcodone/APAP 5/325 MG 1 TAB TAB PO PRN ×2 (08:49→17:54)
[2019-05-28] MEDS: DOCUSATE SODIUM 100 MG GELCAP PO SCH ×2 (08:50→20:03)
[2019-05-28] MEDS: LACTOBACILLUS RHAMNOSUS GG 1 EACH CAP PO SCH (08:50)
[2019-05-28] MEDS: QUEtiapine FUMARATE 100 MG TAB PO SCH ×2 (08:50→20:04)
[2019-05-28] MEDS: AMOXIL/CLAVULANATE 875/125 MG 1 TAB PO SCH ×2 (08:50→20:03)
--- NOTE | 2019-05-28 08:55 | NUR ---
AT THE BEDSIDE WITH PATIENT C/O TOOTH PAIN, SCHEDULE MEDICATIONS AND PAIN MEDICATIONS GIVEN AT THIS TIME. WILL CONTINUE TO MONITOR.
[2019-05-28] MEDS ORDERED: LACT10CA PO (09:22)
[2019-05-28] MEDS ORDERED: MIRT15TA4 PO (09:22)
[2019-05-28] MEDS ORDERED: AUG875 PO (09:22)
[2019-05-28] MEDS ORDERED: QUET100T44 PO ×2 (09:22)
[2019-05-28] MEDS ORDERED: DOCU-299 PO (09:22)
--- NOTE | 2019-05-28 09:50 | NUR ---
Job Foreman Note: I met with patient at bedside to discuss discharge plan. He expressed to me he would like to be transferred to a hospital with a psychiatric unit/metal health services. I asked him if he would be willing to voluntary go to hospital with psychiatric unit/mental health services. He told me "yes". I asked him if he had ever been voluntarily hospitalized at a hospital with psychiatric unit/mental health services, he responded he was admitted at [facility] and [facility] . I explained to him I will contact those facilities and inquire if they can accept him. He verbalized understanding.
--- NOTE | 2019-05-28 10:30 | NUR ---
Trade Embalmer Note: I faxed referrals to [facility], fax and [facility] . I called and spoke with Yovana at [facility] , he stated they will review inquiry and call me back. I called and spoke with Ramón from [facility] , he advised me to call back at 2pm.
--- NOTE | 2019-05-28 15:00 | NUR ---
Bobbin Winder Note: I received a call from Maximino from [facility] , he stated they have a bed available for patient if patient is voluntarily wants to go to their facility and if there documentation by psychiatrist stating reasons why patient needs inpatient mental health services and is no longer on hold, I informed and patient's nurse Leung of this. Addendum: 05/28/19 at 1530 by Vicki Brand SS Per Maximino from [facility] , once they receive psychiatrist documentation stating reasons why patient needs inpatient mental health services, they will contact Charge Nurse Nelli and provide her with bed number and accepting physician, patient's nurse Leung was made aware. I provided Maximino with telemetry's phone number. Addendum: 05/28/19 at 1701 by Vicki Brand SS I faxed recent documentation 05/28/19 to [facility], fax number , confirmation sheet received.
[2019-05-28 16:00] VITALS: BP 138/85
--- NOTE | 2019-05-28 17:54 | NUR ---
AT THE BEDSIDE WITH PATIENT, DISCHARGE INSTRUCTIONS GIVEN AND PATIENT VERBALIZED UNDERSTANDING OF PLAN OF CARE. PATIENT STABLE BUT REQUESTING PAIN MEDICATION FOR TOOTH PAIN. MEDICATION IS GIVEN AT THIS TIME. PATIENT WILL CONTINUE TO PREPARE FOR DISCHARGE AND AWAIT [facility] ARRIVAL FOR TRANSPORT.
--- NOTE | 2019-05-28 19:30 | NUR ---
@1745: SUZY SALCEDO CALLED FROM [facility] AND STATED THEY ACCEPTED PT. ACCEPTING PHYSICIAN DR. PETE. ROOM [address]-B. TEL# [phone]. NO TRANSPORTATION. [facility], NO DRIVERS UNTIL TOMORROW. [facility], STATED PT DOES NOT MEET CRITERIA. [facility] AND WON'T ACCEPT PT'S INSURANCE AND THEY ALL STATED IT IS NOT THEIR JURISDICTION. . [facility] CAN TAKE PT TOMORROW AT 3 PM. CALLED [facility] RN ENDOSCOPY CHARGE STATED THEY CAN NOT HOLD THE BED BUT STATED WE CAN CHECK IN THE MORNING. DR. BENTLEY AND RESIDENTS NOTIFIED.
--- NOTE | 2019-05-28 19:30 | NUR ---
ENDORSED TO GEOPHYSICAL ENGINEER NURSE. PATIENT IS IN STABLE CONDITION.
--- NOTE | 2019-05-28 19:31 | NUR ---
REPORT RECEIVED FROM AM NURSE AT BEDSIDE. PT IN STABLE CONDITION. AAOX4. INTRODUCED SELF TO PT. BOARD UPDATED. NO COMPLAINTS OF PAIN. NO SOB. AFEBRILE. PT IS AMBULATORY. IV SITE L HAND 22G SL PATENT AND INTACT. SKIN WARM, DRY, AND INTACT WITH NO OPEN WOUNDS. BED LOCKED IN LOW POSITION. CALL HASSAN WITHIN REACH. SAFETY PRECAUTION IN PLACE. ALL NEEDS MET AT THIS TIME.
[2019-05-28] MEDS: MIRTAZAPINE 15 MG TAB PO SCH (20:03)
--- NOTE | 2019-05-28 20:03 | NUR ---
AUGMENTIN, COLACE, REMERON, AND SEROQUEL GIVEN PO. PT TOLERATED WELL.
--- NOTE | 2019-05-28 22:10 | NUR ---
PT SLEEPING COMFORTABLY BUT AROUSABLE. NO S/S OF DISTRESS NOTED. WILL CONTINUE TO MONITOR.
[2019-05-29] VITALS: BP 144/82
--- NOTE | 2019-05-29 00:15 | NUR ---
PT SLEEPING COMFORTABLY BUT AROUSABLE. NO S/S OF DISTRESS NOTED. NO COMPLAINTS OF PAIN. NO SOB. AFEBRILE. WILL CONTINUE TO MONITOR.
--- NOTE | 2019-05-29 02:30 | NUR ---
PT SLEEPING COMFORTABLY BUT AROUSABLE. NO S/S OF DISTRESS NOTED. WILL CONTINUE TO MONITOR.
--- NOTE | 2019-05-29 04:30 | NUR ---
PT SLEEPING COMFORTABLY BUT AROUSABLE. NO S/S OF DISTRESS NOTED. WILL CONTINUE TO MONITOR.
--- NOTE | 2019-05-29 06:30 | NUR ---
PT SLEEPING COMFORTABLY BUT AROUSABLE. PT IN STABLE CONDITION.
--- NOTE | 2019-05-29 07:30 | NUR ---
Received report from shift production supervisor nurse. Pt is in bed in stable condition. Call light in reach.
[2019-05-29 08:00] VITALS: BP 138/84
[2019-05-29] MEDS: DOCUSATE SODIUM 100 MG GELCAP PO SCH (09:33)
[2019-05-29] MEDS: LACTOBACILLUS RHAMNOSUS GG 1 EACH CAP PO SCH (09:33)
[2019-05-29] MEDS: AMOXIL/CLAVULANATE 875/125 MG 1 TAB PO SCH (09:33)
[2019-05-29] MEDS: QUEtiapine FUMARATE 100 MG TAB PO SCH (09:34)
--- NOTE | 2019-05-29 09:45 | NUR ---
05/29/19 RD INITIAL ASSESSMENT COMPLETED PLEASE REFER TO NUTRITION ASSESSMENT UNDER CARE ACTIVITY FOR ESTIMATED NUTRITIONAL NEEDS. 1. CONTINUE REGULAR DIET ORDERED AND TOLERATED. 2. RD TO FOLLOW-UP 7 DAYS, LOW RISK PATRICIA MONSALVE, RD
--- NOTE | 2019-05-29 09:55 | NUR ---
@6820 HRS: FOLLOWED UP [facility] ([facility]) TEL# [phone], ADDRESS: [id number], [facility] [address] SPOKE WITH DIONY CHARGE NURSE, STATED THAT THEY STILL HAVE THE BED FOR PT (ROOM 316-B). CALLED [facility], SPOKE WITH RASHAD. ETA FOR GURNEY TRANSPORTATION WILL BE BETWEEN 2:30-3PM TODAY. DIONY-KYRA AT PSYCH FACILITY AND CESAR-CLAUDE ASSIGNED MADE AWARE.
[2019-05-29] MEDS ORDERED: HYDROcodone/APAP 5/325 MG 1 TAB TAB PO PRN (10:00)
--- NOTE | 2019-05-29 10:30 | NUR ---
Pt is in bed in stable condition. Call light in reach.
--- NOTE | 2019-05-29 12:00 | NUR ---
Pt is in bed in stable condition. Call light in reach.
--- NOTE | 2019-05-29 14:00 | NUR ---
Pt was discharged today. Report given to Charge Nurse Magdi. Pt is under Dr. Love, room number 123A. Pt was alert and awake. Pt walked with steady gait from bed to [facility]. No complains of pain reported. no distress noted. IV line was removed. Catheter intact. No active bleeding from IV site. ID band removed from patient. Pt's belongings with patient. Pt's discharge instructions was given to patient. Discharge packet was given to transport personal. Prescription was given along with packet to be given to Charge Nurse Magdi. Pt is going [facility] [place] [id number]. Skin intact.
== END 2019-05-29 14:00 | disposition designated cancer center or children's hospital (05) | DRG 816 ==
LOC: MED 14:29 → MTU 05-21 14:52
PROVIDERS: ADMIT General Practice; ATTEND General Practice
DX: T40.5X1A Poisoning by cocaine, accidental (unintentional), initial encounter (principal); G92 Toxic encephalopathy; E83.42 Hypomagnesemia; F25.9 Schizoaffective disorder, unspecified; R45.851 Suicidal ideations; F19.10 Other psychoactive substance abuse, uncomplicated; F32.9 Major depressive disorder, single episode, unspecified; Z59.0 Homelessness; Z91.5 Personal history of self-harm; Z90.49 Acquired absence of other specified parts of digestive tract; F17.210 Nicotine dependence, cigarettes, uncomplicated; Z91.19 Patient's noncompliance with other medical treatment and regimen; K04.7 Periapical abscess without sinus; T50.995A Adverse effect of other drugs, medicaments and biological substances, initial encounter; Y92.89 Other specified places as the place of occurrence of the external cause
CPT/HCPCS: 36415; 71045; 80048; 80053; 80305; 81003; 83036; 83690; 83735; 84100; 84443; 85025; 87081; 99285; G0480; G0482; J0295; J7030; Q0092